=== PATIENT | male | born 1960 | race Caucasian/White ===

== ENCOUNTER 2018-09-04 14:23 | Day surgery (SDC) | payer BC ==
[~2018-09-04 14:23] MED LIST: Buffered Lidocaine 1% SYRIN* 1 ML/SYRINGE INTRADERM ONE; Dexamethasone IV* 4 MG/ML 1 ML (4 MG) IV SLOW PU ONE; Famotidine IV* 10 MG/ML 2 ML (20 mg) IV ONE; Lactated Ringers 1000 ML Bag* 1,000 ML IV SCH
[2018-09-04] MEDS ORDERED: Buffered Lidocaine 1% SYRIN* 1 ML/SYRINGE INTRADERM ONE (14:45)
[2018-09-04] MEDS ORDERED: Dexamethasone IV* 4 MG/ML 1 ML (4 MG) ONE ×2 (14:45→14:48)
[2018-09-04] MEDS ORDERED: Famotidine IV* 10 MG/ML 2 ML (20 mg) ONE (14:45)
[2018-09-04] MEDS ORDERED: ceFAZolin 2 GM in NS PREMIX(*) 2 GM/100 ML BAG IVPB ONE (14:45)
[2018-09-04] MEDS ORDERED: fentaNYL* 50 MCG/ML 2 ML VIAL (100 MCG VIAL) ONE (15:48)
[2018-09-04] MEDS ORDERED: Midazolam* 1 MG/ML 5 ML VIAL (5 MG) ONE (15:48)
[2018-09-04] MEDS ORDERED: Propofol* 10 MG/ML 20 ML BTL ONE ×2 (15:48→17:23)
[2018-09-04] MEDS ORDERED: Lidocaine 2% PF * 5 ML VIAL ONE (15:49)
[2018-09-04] MEDS ORDERED: Ondansetron INJ* 2 MG/ML VIAL ONE (15:50)
[2018-09-04] MEDS ORDERED: Bupivacaine 0.5% W/EPI SDV* 30 ML VIAL ONE (16:37)
[2018-09-04] MEDS ORDERED: Lidocaine 1% INJ* 10 MG/ML 30 ML SDV ONE (16:37)
[2018-09-04 20:09] VITALS: BP 162/85
--- NOTE | 2018-09-05 01:30 | OP ---
CC: Pee Clark DO * DATE OF OPERATION: 09/04/18 - SDS DATE OF : 64 SURGEON: Michael Oakes MD ACCOUNT SUPERVISOR: Simona Rasheed NP ANESTHESIOLOGIST: Dr. Bridges. ANESTHESIA: Local MAC. PRE-OP DIAGNOSIS: Right inguinal hernia. POST-OP DIAGNOSIS: Right inguinal hernia. OPERATIVE PROCEDURE: Open right inguinal hernia repair with mesh. ESTIMATED BLOOD LOSS: Minimal. IV FLUIDS: Crystalloid. SPECIMEN: None. DRAINS: None. COMPLICATIONS: None. COUNTS: Instrument, needle, and sponge counts were correct. DESCRIPTION OF PROCEDURE: The patient was brought to the operating room and placed on the table supine. Sequential compression devices were placed on both lower extremities. He was administered intravenous sedation and he was prepped and draped in the usual sterile fashion and appropriate antibiotics were administered. Time-out was performed. Local anesthetic was infiltrated as a field block in the right groin. An oblique incision was created approximately 5 to 6 cm long and subcutaneous tissues were divided with cautery. External oblique aponeurosis was identified and additional anesthetic was infiltrated beneath this. The aponeurosis was opened along the line of its fibers through the superficial ring. There was a significant amount of chronic scarring relating to the hernia sac. The hernia sac was large and extended down to the scrotum, could not be completely reduced. The contents of the inguinal canal were isolated with a Miri drain at the level of the pubic tubercle. The ilioinguinal nerve was identified. It was not able to be preserved, therefore it was divided between clamps and ligated with 4-0 absorbable ties. The spermatic cord components were dissected free from the sac. The sac was completely divided leaving the distal end open. The proximal sac was inspected. There was noted to be no sliding component. It was twisted upon itself, suture ligated with 2-0 Vicryl and then allowed to retract beyond the deep ring. Repair was then performed with the [employer] ProGrip mesh for right side open repair. This was positioned to cover the entire floor of the canal with the lateral and medial edges trimmed in order to fit this appropriately. The flap with the closure was positioned snugly around the cord. The external oblique aponeurosis was then run close with 2-0 Vicryl. The Mari's was closed with 3-0 Vicryl in interrupted fashion and the skin was closed with 4-0 Monocryl in running subcuticular fashion. Steri- Strips were applied with dry dressing. The patient tolerated the procedure well , was awakened and then transferred to recovery room in stable condition. [id number] #: [id number] MTDD
[2018-09-05] MEDS ORDERED: Lisinopril TAB* 10 MG PO SCH (09:00)
== END 2018-09-04 20:16 | disposition home or self-care (01) ==
LOC: OR 14:23
PROVIDERS: ATTEND Surgery
DX: K40.90 Unilateral inguinal hernia, without obstruction or gangrene, not specified as recurrent (principal); I10 Essential (primary) hypertension; Z72.0 Tobacco use
CPT/HCPCS: C1781; J0690; J1100; J2250; J2405; J2704; J3010